=== PATIENT | female | born 1995 | race Caucasian/White ===

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

== ENCOUNTER 2017-01-17 05:30 | Day surgery (SDC) | payer OTHER ==
[2017-01-04 10:11] VITALS: BMI 55.0
--- NOTE | 2017-01-04 10:51 | PAT Medication Instructions ---
Service Date January 04, 2017. Current Home Medication List Albuterol Sulfate (Proair Respiclick), 2 PUFF INH Q4 PRN for SOB/Wheezing Bupropion Hcl (Bupropion Hcl Er), 200 MG PO QAM Cetirizine (Zyrtec), 10 MG PO QAM Cholecalciferol (Vitamin D3), 1 TAB PO QAM Citalopram (Citalopram Hydrobromide), 1 TAB PO QAM Escitalopram Oxalate (Lexapro), 20 MG PO BID Fluticasone Propionate (Nasal) (Flonase Allergy Relief), 2 SPRAY ANTONIETA BID Hydrocodon/Acetaminophen 5MG/300MG (Vicodin (5MG/300MG)), 1 TAB PO Q4H PRN for Pain Lamotrigine (Lamictal), 50 MG PO BID Medroxyprogesterone Acetate (Depo-Provera), 1 DOSE INJ [id number] Melatonin (Kp Melatonin), 1 TAB PO HS Metformin Hcl (Glucophage), 500 MG PO BIDM Mirtazapine Soltab (Remeron Soltab), 30 MG PO QAM Omeprazole (Prilosec), 40 MG PO QAM Medication Instructions For Your Scheduled Surgery - Hold the following medications 48 hours prior to surgery: Metformin Hcl (Glucophage), 500 MG PO BIDM - Hold the following medications the morning of surgery: Cetirizine (Zyrtec), 10 MG PO QAM Cholecalciferol (Vitamin D3), 1 TAB PO QAM - Take the following medications the morning of surgery with a sip of water OTHERWISE NOTHING TO EAT OR DRINK AFTER MIDNIGHT: Fluticasone Propionate (Nasal) (Flonase Allergy Relief), 2 SPRAY ANTONIETA BID Hydrocodon/Acetaminophen 5MG/300MG (Vicodin (5MG/300MG)), 1 TAB PO Q4H PRN for Pain (may take if needed up to 4 hours prior to surgery) Albuterol Sulfate (Proair Respiclick), 2 PUFF INH Q4 PRN for SOB/Wheezing (use if needed; BRING TO HOSPITAL) Bupropion Hcl (Bupropion Hcl Er), 200 MG PO QAM Citalopram (Citalopram Hydrobromide), 1 TAB PO QAM Escitalopram Oxalate (Lexapro), 20 MG PO BID Lamotrigine (Lamictal), 50 MG PO BID Omeprazole (Prilosec), 40 MG PO QAM Mirtazapine Soltab (Remeron Soltab), 30 MG PO QAM - Take the following medications as scheduled the night before surgery: Fluticasone Propionate (Nasal) (Flonase Allergy Relief), 2 SPRAY ANTONIETA BID Hydrocodon/Acetaminophen 5MG/300MG (Vicodin (5MG/300MG)), 1 TAB PO Q4H PRN for Pain Albuterol Sulfate (Proair Respiclick), 2 PUFF INH Q4 PRN for SOB/Wheezing Melatonin (Kp Melatonin), 1 TAB PO HS Escitalopram Oxalate (Lexapro), 20 MG PO BID Lamotrigine (Lamictal), 50 MG PO BID If you have any questions please call us at [phone] or [phone] or [phone]
[~2017-01-17] VITALS: Ht 167.6 cm; Wt 156.0 kg
[~2017-01-17 05:30] MED LIST: ALBU18002 INH; BUPR-266 PO; CETI10TA84 PO; CHOL1000 PO; CITA40TA4 PO; DPPRI400 INJ; ESCI1TAB10 PO; FLUT0.15 NAE; GLC/500 PO; HYDR-3419 PO; LACTATED RINGER'S 1000ML 500 ML IV ONE; LAMO100T16 PO; MELA1TAB5 PO; MIRT30TA2 PO; PRLSR20 PO
[2017-01-17 06:00] VITALS: BP 157/77; PULSE 92; TEMP 36.9; O2SAT 97; Ht 167.6 cm; Wt 156.0 kg
[2017-01-17] MEDS ORDERED: SALINE NASAL GEL (AYR) 14.1 GM TUBE SCH (06:00)
[2017-01-17] MEDS ORDERED: LACTATED RINGER'S 1000ML 1,000 ML IV SCH (06:00)
[2017-01-17] MEDS ORDERED: MIDAZOLAM HCL 1 MG/ML 2ML VIAL ONE (06:43)
[2017-01-17] MEDS ORDERED: FENTANYL CITRATE INJ 50 MCG/1 ML 2 ML VIAL ONE (06:43)
[2017-01-17] MEDS ORDERED: PROPOFOL IV EMULSION 10 MG/ML 20 ML VIAL IV ONE (06:43)
[2017-01-17] MEDS ORDERED: GLYCOPYRROLATE INJ 0.2 MG/ML VIAL ONE (06:43)
[2017-01-17] MEDS ORDERED: LIDOCAINE HCL 2% 2 ML VIAL (20MG/ML) ONE (06:43)
[2017-01-17] MEDS ORDERED: NEOSTIGMINE METHYLSULFATE 5 MG/5 ML SYR ONE (06:43)
[2017-01-17] MEDS ORDERED: ONDANSETRON INJ 2 MG/ML 2 ML VIAL ONE (06:43)
[2017-01-17] MEDS ORDERED: DEXAMETHASONE SOD INJ 4 MG/ML VIAL ONE (06:43)
[2017-01-17] MEDS ORDERED: ROCURONIUM BROMIDE 10 MG/ML 5 ML VIAL ONE (06:43)
[2017-01-17] MEDS ORDERED: SCOPOLAMINE 1.5 MG TDSY TD ONE (06:45)
[2017-01-17] MEDS ORDERED: THROMBIN 5000 UNITS KIT ONE (06:47)
[2017-01-17] MEDS ORDERED: LIDOCAINE/EPINEPHRINE 1% 20 ML VIAL ONE ×2 (06:47→06:48)
[2017-01-17] MEDS ORDERED: OXYMETAZOLINE HCL 0.05% NA SPR 15 ML BTL ONE ×2 (06:47→08:30)
[2017-01-17] MEDS ORDERED: BACITRACIN 50000 UNIT VIAL ONE (06:48)
[2017-01-17] MEDS ORDERED: SODIUM CHLORIDE 0.9% PF 50 ML VIAL ONE (06:49)
[2017-01-17] MEDS ORDERED: NEOMYC/POLYMYX/BACITR/HC OP OI 3.5 GM TUBE ONE (06:49)
[2017-01-17] MEDS ORDERED: BACITRACIN OINT 15 GM TUBE ONE (06:50)
[2017-01-17] MEDS ORDERED: SCOPOLAMINE 1.5 MG TDSY TD SCH (07:00)
--- NOTE | 2017-01-17 07:04 | History & Physical Bridge Note ---
H&P Re-Evaluation Bridge Note: I have examined the patient, reviewed the History & Physical and in the interval since the performance of the History & Physical I have noted the following changes of clinical significance: No changes noted
[2017-01-17] MEDS ORDERED: SODIUM CHLORIDE 0.9% 1000ML 1,000 ML IV SCH (07:35)
--- NOTE | 2017-01-17 07:35 | Discharge Instructions ---
Discharge Instructions Date of Service January 17, 2017. Admission Reason for Admission: Chronic Panisinusitis, Hypertrophy Of Both Inferio Discharge Discharge Diagnosis / Problem: CHRONIC SINUSITIS AND BILATERAL INFERIOR TURBINATE HYPERTROPHY Discharge Goals Goal(s): Decrease discomfort, Improve function, Improve disease control Activity Recommendations Activity Limitations: as noted below Lifting Limitations: no more than 5 pounds Exercise/Sports Limitations: none May Resume Sexual Activity: after two weeks Shower/Bathe: tomorrow Driving or Machine Use: WHEN NO LONGER TAKING NARCOTICS . Instructions / Follow-Up Instructions / Follow-Up ACTIVITY RECOMMENDATIONS: * Being up and around is good, but no strenuous activity, heavy lifting or physical exertion for one week. * Keep your head elevated 30 degrees when lying down or sleeping. * Do not blow your nose; sniff back instead. * Avoid hot showers. MEDICATIONS: * Resume previous medications unless instructed otherwise by your surgeon. * Avoid aspirin or Aspirin containing products, i.e. Ibuprofen (Advil) and other non-steroidal anti-inflammatories as they may increase bleeding. SPECIAL CARE INSTRUCTIONS: * Expect to have bloody drainage from your nose and/or down your throat for one to three days. Change drip pad as needed. * Begin irrigating your nose with saline solution irrigation kit as instructed after your first post-operative visit. * You may experience nasal and facial congestion, pain and pressure, this is normal. * Please call with an significant and/or progressive pain, redness, swelling around the eyes, visual changes, fever of 101.5, active bleeding stiff neck or any problems or concerns. * If active bleeding occurs, spray the nose three times at one minute intervals with Afrin spray and call . If unable to reach the doctor, go to the nearest Emergency Department. FOLLOW UP VISIT: * If not already scheduled, please call the office for an appointment for 3 days for splint removal at . Current Hospital Diet Patient's current hospital diet: Discharge Diet Recommended Diet: Regular Diet Pending Studies Studies pending at discharge: no Medical Emergencies . Who to Call and When: Medical Emergencies: If at any time you feel your situation is an emergency, please call 911 immediately. . Non-Emergent Contact Non-Emergency issues call your: Specialist Call Non-Emergent contact if: temperature is above 100.5, your pain is not controlled, wound has increased drainage . . "Provider Documentation" section prepared by Christofer Hansen. . VTE Core Measure Inpt VTE Proph given/why not?: SCD's
[2017-01-17] MEDS ORDERED: ACETAMINOPHEN/HYDROCODONE ELIX 15 ML/CUP UDP PO PRN (07:45)
[2017-01-17] MEDS ORDERED: MoRPHine SULFATE 4 MG/ML 1 ML CARP\\VIAL IV PRN (07:45)
[2017-01-17] MEDS ORDERED: ONDANSETRON INJ 2 MG/ML 2 ML VIAL IV PRN ×2 (07:45→08:00)
[2017-01-17] MEDS ORDERED: CEFAZOLIN SOD 1 GM VIAL ONE (07:48)
[2017-01-17] MEDS ORDERED: ATROPINE SULFATE 0.1 MG/ML 5ML SYR IV PRN (08:00)
[2017-01-17] MEDS ORDERED: EpHEDrine SULFATE INJ 50 MG/ML AMP IV PRN (08:00)
[2017-01-17] MEDS ORDERED: HYDROmorphone INJ 1 MG/ML SYR IV PRN (08:00)
[2017-01-17] MEDS ORDERED: COCAINE HCL 4% / 4 ML VIAL EXT SCH (08:00)
[2017-01-17] MEDS ORDERED: FENTANYL CITRATE INJ 50 MCG/1 ML 2 ML VIAL IV PRN (08:00)
[2017-01-17] MEDS ORDERED: SUCCINYLCHOLINE CHLORIDE 20 MG/ML 10 ML VIAL IV ONE (08:01)
[2017-01-17] MEDS ORDERED: NURSING VERBAL MED ORDER ONE ×2 (09:30→09:45)
[2017-01-17] MEDS ORDERED: LABETALOL HCL IV 5 MG/ML 20ML IV ONE (09:46)
--- NOTE | 2017-01-17 10:05 | Anesthesiology Progress Note ---
Anesthesia Post Op Note Date & Time January 17, 2017 at 10:05 Vital Signs Pain Intensity: 4 Vital Signs Past 12 Hours Date Time Temp Pulse Resp B/P Pulse Ox O2 Delivery O2 Flow Rate FiO2 01/17/17 10:01 149/92 01/17/17 09:57 78 18 01/17/17 09:57 78 18 95 01/17/17 09:56 169/84 01/17/17 09:52 86 22 01/17/17 09:52 84 22 94 01/17/17 09:51 159/94 01/17/17 09:49 75 15 92 01/17/17 09:49 76 15 01/17/17 09:46 148/97 01/17/17 09:45 176/107 01/17/17 09:44 92 16 93 01/17/17 09:44 91 16 01/17/17 09:41 163/105 01/17/17 09:39 82 19 95 01/17/17 09:39 82 19 01/17/17 09:38 88 19 01/17/17 09:38 90 19 94 01/17/17 09:36 158/99 01/17/17 09:33 85 14 95 01/17/17 09:33 85 14 01/17/17 09:31 171/95 01/17/17 09:28 90 12 95 01/17/17 09:28 90 12 01/17/17 09:26 176/93 01/17/17 09:23 89 15 99 01/17/17 09:23 89 15 01/17/17 09:21 164/86 01/17/17 09:19 158/82 01/17/17 09:18 36.3 91 18 158/82 99 Room Air 01/17/17 09:18 93 16 157/109 99 01/17/17 09:18 93 16 01/17/17 06:00 36.9 92 20 157/77 97 Room Air Notes Mental Status: alert / awake / arousable, participated in evaluation Pt Amnestic to Procedure: Yes Nausea / Vomiting: adequately controlled Pain: adequately controlled Airway Patency, RR, SpO2: stable & adequate BP & HR: stable & adequate Hydration State: stable & adequate Anesthetic Complications: no major complications apparent
[2017-01-17 10:10] VITALS: BP 144/93; PULSE 80; TEMP 36.5; O2SAT 93
[2017-01-17 10:11] VITALS: BP 144/93; PULSE 80; O2SAT 93
[2017-01-17 10:40] VITALS: BP 166/95; PULSE 88; TEMP 36.2; O2SAT 95
[2017-01-17 10:55] VITALS: BP 159/94; PULSE 86; TEMP 36.6; O2SAT 96
--- NOTE | 2017-01-17 12:56 | [facility] Post Operative Brief Note ---
Immediate Operative Summary Operative Date January 17, 2017. Pre-Operative Diagnosis Pansinus disease, Occlusion of the bilateral sphenoid ostia, frontal recesses, and infundibula, by soft tissue Post-Operative Diagnosis Same as preoperative diagnosis Procedure(s) Performed Nasal and Sinus Surgical Endoscopy with Image Guidance and Bilateral Inferior Turbinate Reduction Imaging Guidance Surgeon Dr. Christofer Hansen Corduroy Cutting Supervisor Surgeon(s) None Estimated Blood Loss 50 mL Specimens Permanent specimens A: Bilateral middle turbinates B: Left Ethmoid Sinus mucosa Complication(s) None Disposition Recovery Room / PACU
--- NOTE | 2017-01-17 22:43 | OPERATIVE REPORT ---
DATE OF OPERATION: 01/17/2017 OPERATION PERFORMED: 1. Nasal and sinus surgical endoscopy using Pain Doctortronic fusion image guidance: a. Bilateral total ethmoidectomy. b. Bilateral maxillary sinusotomy. 2. Bilateral inferior turbinate reduction. SURGEON: Dr. Hansen. TECHNIQUE OF ANESTHESIA: General via endotracheal tube. INDICATIONS FOR THE SURGERY: This is a 21-year-old woman with chronic sinusitis recalcitrant to maximal medical management. Also, she was found to have turbinate hypertrophy that was also recalcitrant to maximal medical management. Given her persistent complaints that were consistent with sinus origin and her CT findings showing apparent sinusitis, it was decided to opt for surgical intervention. A full informed consent including the indications, risks, benefits and alternatives was provided in a relaxed office setting. There was an opportunity for questions and answers. COMPLICATIONS: None. Sponge and needle count was correct at the end of the case. SPECIMEN SENT: Mucosa from the left ethmoid sinus. PREOPERATIVE DIAGNOSES: 1. Chronic sinusitis. 2. Bilateral inferior turbinate hypertrophy. POSTOPERATIVE DIAGNOSES: 1. Chronic sinusitis. 2. Bilateral inferior turbinate hypertrophy. BLOOD LOSS: 50 mL DESCRIPTION OF THE PROCEDURE: The patient had injection in the inferior turbinate septum, middle turbinate and anterior ethmoidal bulla using 18 mL of 1% lidocaine in 1:100,000 parts epinephrine. After this, the middle meatus was packed on each side with 2 neurosurgical pledgets soaked in 4% cocaine. The rest of the nose was packed with 2 other neurosurgical pledgets per side, soaked in 0.05% oxymetazoline. About 5-7 minutes was allowed for vasoconstriction while the patient was draped in a sterile fashion. The neurosurgical pledgets were removed, and the surgery began by first reducing the inferior turbinates bilaterally. This involved using the 4.3 mm Pain Doctortronic straight microdebrider to remove mucosa from the lateral surface of each inferior turbinate as well as bone. Medial surface mucosa was carefully preserved. Suction electrocautery was then passed laterally to stop all bleeding. It was also passed medially to shrink down the medial surface mucosa for each inferior turbinate. At this point, both inferior turbinates had been reduced nicely in size. Attention was then directed to the sinus surgery. The rest of this sinus procedure was done interchangeably using a 30-degree endoscope as well as a surgical headlight and loops. First, the middle turbinate was clamped with a curved tonsillar hemostat. Then, turbinate scissors were used to cut on the crush line. Bleeding at the cut margins was stopped with suction electrocautery. The anterior ethmoidal bulla was entered with a straight suction tip bilaterally and then a total ethmoidectomy was done using the 4.3 cutting straight microdebrider. A sales account representative sample of mucosa was taken from the left ethmoid sinus. Attention was then directed to the maxillary sinuses and they were entered with a curved suction tip and backbiting forceps were used to make a large maxillary sinusotomy bilaterally. There was no significant debris in either maxillary sinus, so no microdebrider was used in either maxillary sinus. Any nuisance bleeding was stopped with suction electrocautery. At this point, there was no bleeding. I packed the ethmoid defects bilaterally with NasoPore soaked in bacitracin solution. Telfa-impregnated with bacitracin ointment with straws inserted within the Telfa were used to pack the nose. Mustache dressing was positioned. At the start of the case, I had placed a vaginal pack soaked in saline. This was then removed from the oropharynx. There was no blood seen coming down from the nasopharynx to the oropharynx. I placed an oral airway for the anesthesiologist using direct visualization. The patient was allowed to wake up on her own and transported to recovery in no apparent distress. I attest to the content of the Intraoperative Record and any orders documented therein. Any exceptions are noted below. LETHA
== END 2017-01-17 10:58 | disposition home or self-care (01) ==
LOC: C.ACU 05:30
PROVIDERS: ATTEND Otolaryngology
DX: J32.9 Chronic sinusitis, unspecified (principal); J34.3 Hypertrophy of nasal turbinates; F31.9 Bipolar disorder, unspecified; J45.909 Unspecified asthma, uncomplicated; K21.9 Gastro-esophageal reflux disease without esophagitis; G47.30 Sleep apnea, unspecified; Z90.49 Acquired absence of other specified parts of digestive tract

== ENCOUNTER → 2017-09-28 | Outpatient (CLI) | payer OTHER ==
[~2017-09-28] MED LIST changes: -LACTATED RINGER'S 1000ML 500 ML IV ONE
== END | disposition home or self-care (01) ==
LOC: C.LAB1850 15:30
PROVIDERS: ATTEND Internal Medicine Endocrinology, Diabetes & Metabolism
DX: E66.9 Obesity, unspecified (principal)

== ENCOUNTER → 2018-04-10 | Outpatient (CLI) | payer OTHER ==
[2018-04-10 18:47] LABS: ALBUMIN 3.7 gm/dl (3.4-5.0); ALT/SGPT 18 U/L (12-78); BLOOD UREA NITROGEN 9 mg/dl (7-18); CALCIUM 9.1 mg/dl (8.5-10.1); CARBON DIOXIDE 22 mmol/L (21-32); CREATININE 0.74 mg/dl (0.60-1.20); GLUCOSE 81 mg/dl (70-99); POTASSIUM 4.2 mmol/L (3.5-5.1); SODIUM 134 mmol/L (136-145)
[2018-04-10 18:57] LABS: ALKALINE PHOSPHATASE 93 U/L (45-117); AST/SGOT 19 U/L (15-37); TOTAL PROTEIN 8.6 gm/dl (6.4-8.2)
[2018-04-11 07:08] LABS: HEMOGLOBIN A1C 5.6 % (4.5-5.6)
== END | disposition home or self-care (01) ==
LOC: C.LABMFLN 15:33
PROVIDERS: ATTEND Family Medicine
DX: E03.9 Hypothyroidism, unspecified (principal); E88.81 Metabolic syndrome and other insulin resistance; E16.1 Other hypoglycemia